=== PATIENT | male | born 1950 | race Caucasian/White ===

== ENCOUNTER 2024-08-03 09:24 | Day surgery (SDC) | payer MEDICARE, OTHER ==
[2024-08-03 10:26] VITALS: BP 120/73; TEMP 98.7
[2024-08-03 10:38] LABS: #Basophils 0.03 10x3/uL (0.0-0.2); #Eosinophils 0.26 10x3/uL (0.0-0.5); #Monocytes 1.25 10x3/uL (0.0-1.1); #Neutrophils 5.35 10x3/uL (1.5-8.4); %Basophils 0.4 % (0.0-2.0); %Eosinophils 3.3 % (0.0-6.0); %Lymphocytes 11.4 % (18.0-47.0); %Neutrophils 68.4 % (40.0-75.0); Hematocrit 34.8 % (38.8-50.0); Hemoglobin 11.4 g/dL (13.5-17.5); Mean Corpuscular HGB CONC 32.8 g/dL (32.0-36.0); Mean Corpuscular Hemoglobin 31.3 pg (27.0-33.0); Mean Corpuscular Volume 95.6 fL (81.2-95.1); Mean Platelet Volume 9.5 fL (7.4-10.4); Platelet Count 175 10x3/uL (150-450); RBC Distribution Width 18.3 % (11.5-14.5); Red Blood Cell (RBC) Count 3.64 10x6/uL (4.32-5.72); White Blood Cell (WBC) Count 7.8 10x3/uL (3.5-10.5)
[2024-08-03 10:46] LABS: INR-International Normal Ratio 1.3; Prothrombin Time 13.4 sec (9.5-12.1)
== END 2024-08-03 11:33 | disposition home or self-care (01) ==
LOC: CSHULT 09:24
PROVIDERS: ATTEND Internal Medicine
PROC: 0W9G30Z Drainage of Peritoneal Cavity with Drainage Device, Percutaneous Approach (ICD-10-PCS; principal; 2024-08-03)
DX: K70.31 Alcoholic cirrhosis of liver with ascites (principal); I81 Portal vein thrombosis; I85.00 Esophageal varices without bleeding; K64.9 Unspecified hemorrhoids; K76.82 Hepatic encephalopathy; D64.9 Anemia, unspecified; M19.90 Unspecified osteoarthritis, unspecified site; J98.4 Other disorders of lung; E78.00 Pure hypercholesterolemia, unspecified; Z98.49 Cataract extraction status, unspecified eye; Z98.890 Other specified postprocedural states; Z79.899 Other long term (current) drug therapy; Z87.891 Personal history of nicotine dependence
CPT/HCPCS: 49083; 85025; 85610

== ENCOUNTER 2024-08-24 09:25 | Day surgery (SDC) | payer MEDICARE, OTHER ==
[2024-08-24 10:20] VITALS: BP 122/77; TEMP 98.9
[2024-08-24] MEDS ORDERED: Sodium Bicarbonate 2.5 MEQ/5 ML SDV ONE (10:22)
== END 2024-08-24 11:07 | disposition home or self-care (01) ==
LOC: CSHULT 09:25
PROVIDERS: ATTEND Internal Medicine
PROC: 0W9G3ZZ Drainage of Peritoneal Cavity, Percutaneous Approach (ICD-10-PCS; principal; 2024-08-24)
DX: K70.31 Alcoholic cirrhosis of liver with ascites (principal); I85.10 Secondary esophageal varices without bleeding; I81 Portal vein thrombosis; K76.82 Hepatic encephalopathy; K62.89 Other specified diseases of anus and rectum; D62 Acute posthemorrhagic anemia
CPT/HCPCS: 49083; 85025

== ENCOUNTER → 2025-04-23 | Day surgery (SDC) | payer MEDICARE, OTHER ==
[2025-04-23 13:45] LABS: #Basophils 0.03 10x3/uL (0.0-0.2); #Eosinophils 0.20 10x3/uL (0.0-0.5); #Monocytes 1.46 10x3/uL (0.0-1.1); #Neutrophils 5.44 10x3/uL (1.5-8.4); %Basophils 0.4 % (0.0-2.0); %Eosinophils 2.5 % (0.0-6.0); %Lymphocytes 11.4 % (18.0-47.0); %Monocytes 18.0 % (0.0-10.0); %Neutrophils 67.1 % (40.0-75.0); Hematocrit 38.1 % (38.8-50.0); Hemoglobin 11.9 g/dL (13.5-17.5); Mean Corpuscular Hemoglobin 30.7 pg (27.0-33.0); Mean Corpuscular Volume 98.4 fL (81.2-95.1); Platelet Count 200 10x3/uL (150-450); Red Blood Cell (RBC) Count 3.87 10x6/uL (4.32-5.72); White Blood Cell (WBC) Count 8.10 10x3/uL (3.5-10.5)
[2025-04-23 14:00] LABS: INR-International Normal Ratio 1.2; PTT 26.2 sec (22.0-33.0); Prothrombin Time 13.0 sec (9.5-12.1)
== END ==
LOC: CSHULT 12:31
PROVIDERS: ATTEND Internal Medicine
PROC: BW40ZZZ Ultrasonography of Abdomen (ICD-10-PCS; principal; 2025-04-23)
DX: K74.60 Unspecified cirrhosis of liver (principal); R18.8 Other ascites; D64.9 Anemia, unspecified; E78.00 Pure hypercholesterolemia, unspecified; J98.4 Other disorders of lung; Z79.51 Long term (current) use of inhaled steroids; Z79.899 Other long term (current) drug therapy; Z87.891 Personal history of nicotine dependence
CPT/HCPCS: 76705; 85025; 85610; 85730